=== PATIENT | female | born 1985 | race Caucasian/White ===

== ENCOUNTER 2024-11-17 12:53 | Emergency (ER) | payer OTHER, SELFPAY ==
[2024-11-17 12:56] VITALS: BP 176/98
--- NOTE | 2024-11-17 14:37 | ED.GENMED ---
History of Present Illness
General
Chief Complaint: Musculo-Skeletal Complaint
Source: patient
Exam Limitations: none
Time Seen by Provider: 11/17/24 14:27
Nursing documentation reviewed up to this point in time: agreed with
History of Present Illness
History of Present Illness:
38-year-old female with no significant chronic medical issues presents to the ER for evaluation of right arm pain. Patient says that symptoms have been ongoing for about a month. She cannot recall any inciting injury or trauma but says that she
woke up with shooting pains from the right neck into the right shoulder and elbow. She says that symptoms are triggered by certain positions particular with turning her head. She says that she initially spoke with her primary doctor who prescribed
her a steroid course as well as a muscle relaxer which did not provide any relief. She scheduled an appointment and saw an orthopedist Dr. Dirk Villavicencio last week who scheduled her for an MRI. MRI is this coming but in the meantime she
says that her symptoms are poorly controlled and so she came to the ER. She has tried Tylenol, ibuprofen, tramadol, steroids, Lidoderm, muscle relaxer, gabapentin, heat/ice but no relief of symptoms.
Review of Systems
Review of Systems
All Other Systems: ROS reviewed and negative except as documented in HPI and ROS
Cardiac: Denies chest pain
Musculoskeletal: Reports muscle pain (Arm pain) and neck pain
Neurological: Denies dizzy, headache, weakness or numbness
Phy Exam
Physical Exam
Physical Exam:
General: Well appearing and non-toxic
HEENT: protecting airway
Neck: Supple without meningismus, no midline cervical spine tenderness; mild tenderness in the right upper trapezius region; she has reasonable range of motion of her neck although rotation of the neck towards the right does reproduce some shooting
pains down the right arm
CV: No evidence of cyanosis
Resp: No accessory muscle use
Abd: Non-distended
Extremities: No deformities, no edema, strong right radial pulse; no reproducible tenderness in the shoulder, elbow, wrist on the right and good range of motion of these joints
Neuro: Alert, oriented; motor and sensory intact right upper extremity in radial, median, ulnar nerve distributions
Psych: Normal affect
Skin: Intact, no rash in area of concern
Scores
Heart Failure Risk
Heart Failure Risk Score: Not Applicable
Heart Score for Chest Pain Patients
STEMI patient?: Not applicable
Withdrawal Assessment of Alcohol
Withdrawal Assessment Completed?: Not applicable
Course
Vital Signs
Initial and Last Documented VS:
Initial Vital Signs
Temp Pulse Resp BP Pulse Ox
36.9 C 96 18 176/98 100
11/17/24 12:56 11/17/24 12:56 11/17/24 12:56 11/17/24 12:56 11/17/24 12:56
Last Documented Vital Signs
Temp Pulse Resp BP Pulse Ox
36.9 C 96 18 176/98 100
11/17/24 12:56 11/17/24 12:56 11/17/24 12:56 11/17/24 12:56 11/17/24 12:56
MDM/Problems Addressed
Differential Diagnosis Includes:
Cervical radiculopathy�DJD, bulging/herniated disc, etc; less likely rotator cuff pathology/fracture--with no tenderness or pain on range of motion of the shoulder this is clinically ruled out; she has no edema or skin changes to suggest this is a
DVT had no risk factors for such
MDM/Problems Addressed:
38-year-old female presents for shooting pain from the right side of her neck into the right arm that has been ongoing for the past month worse with certain movements of the neck. No inciting trauma or injury. Seen by specialist and referred for
an MRI this week. Symptoms are poorly controlled which prompted ER visit. She has tried multiple modalities for pain control without adequate relief of her symptoms. No indication for emergent imaging in my judgment; she has already had x-rays
and is scheduled for an MRI shortly. Her clinical picture is consistent with a pinched nerve/cervical radiculopathy. I had a long discussion with the patient about options for pain control at this point she has already tried the standard
modalities without success. Will provide short course of opioids for breakthrough pain but I explained that these are short-term solution and that should be only be used sparingly. Continue outpatient follow-up plan that is already in motion.
Acute Exacerbation and/or Progression of Chronic Illness:
Acute hypertension likely pain related�no indication for emergent antihypertensives
Acute Exacerbation and/or Progression of Chronic Illness: HTN
*Pulse Oximetry
SaO2: 100
Oxygen Mode of Delivery: Room air
Patient hypoxic: no (100%)
*Critical Care Note
Total Time (30-74mins, 75-104mins- exclusive of procedures): Not Applicable
Data Reviewed
Source: patient
Update Note
Update Note:
Query PDMP�no red flags
ED Attending Note
-
Portions of this chart may have been created with voice recognition software.� Occasional wrong word or��sound alike� substitutions may have occurred due to the inherent limitations of voice recognition software.
Discharge Plan
Departure
Patient Disposition: Home (Routine Discharge)
Date of Disposition: 11/17/24
Time of Disposition: 14:45
Patient with high blood pressure during this ER visit?: Yes
Discharge Problem:
Cervical radiculopathy
Instructions: Radiculopathy of the neck and back (including sciatica) - Discharge instruc
Prescriptions:
New
oxycodone 5 mg tablet
5 mg PO Q6H PRN (Reason: Pain) Qty: 10 0RF
Activity Restrictions/Additional Instructions:
Thank you for visiting the Emergency Department at [facility].
1. Please schedule a follow up appointment as directed. Call first thing tomorrow morning to make an appointment.
2. If indicated, please take your medications as instructed and indicated on discharge paperwork.
3. If any of your symptoms do not improve, or persist, or become more severe within 6-12 hours, please return to the emergency department for further care.
4. Please return to the emergency department if you develop a headache, neck pain/stiffness, fever greater than 100.4F, chest pain, shortness of breath, persistent nausea, vomiting, slurred speech, difficulty walking, numbness/tingling, weakness,
signs of infection or any other symptoms that are worrisome to you.
Please call [phone] if you have any questions.
Interventions
Interventions:
*Risk Screen - Suicide Last Done: 11/17/24 12:56
*General Assessment Last Done: 11/17/24 12:56
*ED- Fall Risk Assessment Last Done: 11/17/24 12:56
*ED COVID-19 Vaccine History Last Done: 11/17/24 12:56
Discharge Date and Time
Print Language: [email or web address]
== END 2024-11-17 15:15 | disposition home or self-care (01) ==
LOC: EMR 12:53
PROVIDERS: EMERGENCY PHYSICIAN Emergency Medicine; FAMILY PHYSICIAN Family Medicine
DX: M54.12 Radiculopathy, cervical region (principal); M79.601 Pain in right arm; M25.521 Pain in right elbow; M25.511 Pain in right shoulder; R03.0 Elevated blood-pressure reading, without diagnosis of hypertension; Z88.1 Allergy status to other antibiotic agents
CPT/HCPCS: 99283